=== PATIENT | male | born 1940 | race Caucasian/White ===

== ENCOUNTER 2017-03-07 16:18 | Emergency (ER) ==
[2017-03-07 16:26] VITALS: BP 105/61; TEMP 98.8; BMI 21.2
[2017-03-07 16:41] LABS: BASOPHILS % (AUTO) 0.3 % (0.0-3.0); EOSINOPHILS # (AUTO) 0.1 K/ul (0.0-0.7); EOSINOPHILS % (AUTO) 1.2 % (0.0-7.0); HEMATOCRIT 29.8 % (42.0-52.0); HEMOGLOBIN 9.7 g/dl (14.0-18.0); IMMATURE GRANULOCYTE % (AUTO) 0.2 % (0.0-5.0); LYMPHOCYTES # (AUTO) 0.9 K/uL (0.60-3.4); LYMPHOCYTES % (AUTO) 16.3 (10.0-50.0); MEAN CORPUSCULAR HEMOGLOBIN 29.6 pg (27.0-31.0); MEAN CORPUSCULAR HGB CONC 32.6 (31.8-35.4); MEAN CORPUSCULAR VOLUME 90.9 fl (80.0-94.0); MONOCYTES # (AUTO) 0.4 K/uL (0.4-2.0); MONOCYTES % (AUTO) 7.1 (0-10); NEUTROPHILS # (AUTO) 4.3 K/ul (2.0-6.9); NEUTROPHILS % (AUTO) 74.9; PLATELET COUNT 106 10^3/uL (140-440); RED BLOOD COUNT 3.28 10^6/ul (4.70-6.10); WHITE BLOOD COUNT 5.75 K/ul (4.2-10.2)
--- NOTE | 2017-03-07 16:53 | ED.PDOC ---
General ED Provider: Dr. BREANNA VINES Chief Complaint: Weakness Stated Complaint: EMT brought patient as he is complaining of weakness tired for couple of days, no specifics when started, does not c/o SOB, chest pain, says he is usually goes to [facility]. Time Seen by Physician: 16:56 Mode of Arrival: Ambulance Information Source: Patient Primary Care Provider: MAI CHENG Nursing and Triage Documentation Reviewed and Agree: Yes Neurological Complaint Exam - Weakness Complaint/Exam Onset: Gradual Symptoms Are: Still present Timing: Constant Episodes Lasting: Weeks Initial Severity: Moderate Current Severity: None Character: Reports: Unable to describe Aggravating: Reports: None Alleviating: Reports: None Associated Signs and Symptoms: Denies: Nausea, Vomiting, Diaphoresis, Tinnitus, Chest pain, Short of air, Palpitations, Unsteady gait, GI blood loss, Visual changes, Decreased oral intake, Change in medication, Change in diet, OTC meds, Loss of balance Related History: Similar episode Cardiac Risk Factors: Reports: None CVA Risk Factors: Reports: None Related Surgical History: Reports: None JVD Present: No Carotid Bruit Present: No Rectal Heme Positive: No Focal Weakness: Present: None Focal Sensory Loss: Present: None [id number]: Normal Findings Differential Diagnoses: Hypovolemia, Medication reaction, Metabolic abnormalities Review of Systems - Review Of Systems Constitutional: Reports: No symptoms Eyes: Reports: No symptoms Ears, Nose, Mouth, Throat: Reports: No symptoms Respiratory: Reports: No symptoms Cardiac: Reports: No symptoms GI: Reports: No symptoms : Reports: No symptoms Musculoskeletal: Reports: No symptoms Skin: Reports: No symptoms Neurological: Reports: Weakness Endocrine: Reports: No symptoms Hematologic/Lymphatic: Reports: No symptoms All Other Systems: Reviewed and Negative Past Medical History - Past Medical History Previously Healthy: Yes Endocrine: Reports: None Cardiovascular: Reports: Hypertension, CHF, A-Fib Respiratory: Reports: None Hematological: Reports: Anemia Gastrointestinal: Reports: None Genitourinary: Reports: None Neuro/Psych: Reports: None Musculoskeletal: Reports: None Cancer: Reports: None - Surgical History General Surgical History: Reports: Pacemaker - Family History Family History: Reports: None - Social History Smoking Status: Former smoker Hx Substance Use: No Alcohol Screening: None Physical Exam - Physical Exam Appearance: Well-appearing, No pain distress, Well-nourished Eyes: OLVIN, EOMI, Conjunctiva clear ENT: Ears normal, Nose normal, Oropharynx normal Respiratory: Airway patent, Breath sounds clear, Breath sounds equal, Respirations nonlabored Cardiovascular: RRR, Pulses normal, No rub, No murmur GI/: Soft, Nontender, No masses, Bowel sounds normal, No Organomegaly Musculoskeletal: Normal strength, ROM intact, No edema, No calf tenderness Skin: Warm, Dry, Normal color Neurological: Sensation intact, Motor intact, Reflexes intact, Cranial nerves intact, Alert, Oriented Psychiatric: Affect appropriate, Mood appropriate Critical Care Note - Critical Care Note Total Time (mins): 15 Course - Course Hematology/Chemistry: 03/07/17 16:35 03/07/17 16:35 Orders, Labs, Meds: Lab Review 03/07/17 16:35 WBC 5.75 RBC 3.28 L Hgb 9.7 L Hct 29.8 L MCV 90.9 MCH 29.6 MCHC 32.6 RDW Coeff of Robert 15.1 H Plt Count 106 L Immature Gran % (Auto) 0.2 Neut % (Auto) 74.9 Lymph % (Auto) 16.3 [place] % (Auto) 7.1 Eos % (Auto) 1.2 Baso % (Auto) 0.3 Immature Gran # (Auto) 0.0 Neut # 4.3 Lymph # 0.9 [place] # 0.4 Eos # 0.1 Baso # 0.0 Sodium 147 H Potassium 4.6 Chloride 104 Carbon Dioxide 30 Anion Gap 17.6 BUN 56 H Creatinine 2.81 H Estimated GFR (MDRD) 22.00 BUN/Creatinine Ratio 19.92 Glucose 107 Calcium 9.5 Total Bilirubin 1.21 H AST 16 ALT 9 L Alkaline Phosphatase 45 L Total Creatine Kinase 76 Troponin I 0.0200 Total Protein 6.8 Albumin 3.9 Globulin 2.9 Albumin/Globulin Ratio 1.34 Digoxin 2.42 H* Orders Category Date Time Status EKG-(ED ONLY) Stat CARDIO 03/07/17 16:29 Completed CBC W/ AUTO DIFF Stat LAB 03/07/17 16:35 Completed COMPREHENSIVE METABOLIC PANEL Stat LAB 03/07/17 16:35 Completed CREATINE KINASE Stat LAB 03/07/17 16:35 Completed DIGOXIN Stat LAB 03/07/17 16:35 Completed TROPONIN I Stat LAB 03/07/17 16:35 Completed UA [URINALYSIS C & S IF INDICATED] Stat LAB 03/07/17 16:28 Uncollected CHEST, 1V AP ONLY Stat RADS 03/07/17 16:28 Completed Vital Signs: Temp Pulse Resp BP Pulse Ox 03/07/17 16:19 98.8 F 69 20 105/61 100 Departure - Departure Time of Disposition: 17:02 Disposition: HOME SELF-CARE Discharge Problem: Weakness Instructions: Weakness (ED) Condition: Good Pt referred to PMD for follow-up: Yes Additional Instructions: keep f/u with PMD Decrease Lasix to 40 po daily hold digoxin for 3 days and re check levels. f/u with PMF F/u with me [facility] 3-4 days patient hs HG of 9.5 which is stable since 06-11 compared labs from [facility]. Allergies/Adverse Reactions: Allergies No Known Allergies Allergy (Unverified 03/07/17 16:28) Home Medications: Ambulatory Orders Dabigatran Etexilate Mesylate [Pradaxa] 150 mg PO Q12HR 03/07/17 Digoxin 125 mcg PO DAILY 03/07/17 Furosemide 40 mg PO BID 03/07/17 Levothyroxine Sodium [Synthroid] 25 mcg PO QDAC 03/07/17 Lisinopril 20 mg PO DAILY 03/07/17 Metformin HCl 500 mg PO BID 03/07/17 Potassium Chloride 10 meq PO DAILY 03/07/17 Terazosin HCl [Hytrin] 5 mg PO DAILY 03/07/17 Disposition Discussed With: Patient
[2017-03-07 17:22] LABS: ALBUMIN 3.9 g/dL (3.4-5.0); ALBUMIN/GLOBULIN RATIO 1.34; ANION GAP 17.6; BILIRUBIN,TOTAL 1.21 mg/dL (0.00-1.20); BUN/CREATININE RATIO 19.92; CALCIUM 9.5 mg/dL (8.2-10.2); CREATININE 2.81 mg/dL (0.60-1.10); POTASSIUM 4.6 mmol/L (3.5-5.1); TOTAL PROTEIN 6.8 g/dL (5.8-8.1); TROPONIN I 0.02 ng/ml (0.0000-0.4000)
[2017-03-07 17:24] LABS: DIGOXIN 2.42 ng/mL (1.00-2.00)
--- NOTE | 2017-03-07 17:28 | DI ---
EXAM: Chest, one-view HISTORY: Coughing COMPARISON: 01/13/2017 TECHNIQUE: Single view chest was performed FINDINGS: Left-sided cardiac pacer. Heart is enlarged, unchanged. Mediastinal contour unchanged a nd atherosclerosis. No pleural effusion. No pneumothorax. Lungs are clear. IMPRESSION: Cardiomegaly. No acute cardiopulmonary process.
== END 2017-03-07 20:27 | disposition home or self-care (01) ==
LOC: ED 16:18
DX: R53.1 Weakness (principal); I10 Essential (primary) hypertension; I50.9 Heart failure, unspecified; D64.9 Anemia, unspecified; I48.91 Unspecified atrial fibrillation; Z95.0 Presence of cardiac pacemaker; Z79.899 Other long term (current) drug therapy
CPT/HCPCS: 36415; 80053; 80162; 82550; 84484; 85025; 93005; 93010; 99283